=== PATIENT | female | born 1950 | race Caucasian/White ===

== ENCOUNTER 2017-02-20 08:29 | Observation (INO) ==
[2017-02-20] MEDS ORDERED: SODIUM CHLORIDE 0.9% 1,000 ML IV STA (08:48)
[2017-02-20 09:33] LABS: Basophils % 0.3 % (0.0-0.8); Eosinophils # 0.3 10*3/uL (0.0-0.87); Eosinophils % 3.2 % (0.00-10.9); Hematocrit 38.1 VOL% (35.7-47.0); Hemoglobin 12.1 GM/DL (12.0-16.0); Immature Granulocytes % 0.6 %; Immature Granulocytes Absolute 0.06 #; Lymphocytes # 1.8 10*3/uL (1.4-4.0); Lymphocytes % 19.4 % (21.3-54.2); Mean Corpuscular HGB Conc 31.8 GM/DL (32-36); Mean Corpuscular Hemoglobin 32 PG (27-34); Mean Corpuscular Volume 101.3 FL (87-102); Mean Platelet Volume 9.6 FL (9.6-12.0); Monocytes # 0.7 10*3/uL (0.11-0.8); Monocytes % 7.5 % (1.7-12.7); Neutrophils # 6.4 10*3/uL (1.4-7.4); Platelet Count 187 T/CUMM (130-400); Red Blood Count 3.76 MC/CUMM (3.8-5.5); Red Cell Distribution Width 14.6 % (9.3-17.3); White Blood Count 9.3 T/CUMM (4-12)
[2017-02-20 09:36] LABS: Amorphous Crystals,Urine Occasional /HPF (Few); Apearance,Urine CLEAR (Clear); Bacteria,Urine Many /HPF (Few); Bilirubin,Urine Negative (Negative); Blood, Urine Small mg/dL (Negative); Glucose,Urine (UA) 150 mg/dL (Negative); Ketones,Urine Negative (Negative); Mucus,Urine Occasional /LPF (Occasional); Nitrite,Urine Positive (Negative); Protein,Urine Negative; RBC,Urine <1 /HPF (0-4); Squamous Epithelial Cell,Urine Occasional /HPF (0-10); Urine Color Yellow (Yellow); Urine Specific Gravity 1.018 (1.001-1.035); Urine Urobilinogen < 2.0 EU/DL (0.2-1.0); WBC,Urine 15 /HPF (0-6)
[2017-02-20] MEDS ORDERED: ONDANSETRON 4 MG/2 ML VIAL ONE ×2 (09:36→11:29)
[2017-02-20] MEDS ORDERED: MORPHINE 2 MG/1 ML SYRINGE ONE (09:37)
[2017-02-20 09:43] LABS: INR 1.1; PT Patient Result 11.2 SECS; Partial Thromboplastin Time 32.9 SECS (0-40)
[2017-02-20 09:56] LABS: Barbiturates Screen,Urine Negative (Negative); Benzodiazepines Screen,Urine Negative (Negative); Cannabinoid Screen,Urine Negative (Negative); Opiate Screen,Urine Negative (Negative); Phencyclidine Screen,Urine Negative (Negative)
[2017-02-20] MEDS ORDERED: cefTRIAXone 1,000 MG in SODIUM CHLORIDE 0.9% 100 ML IV STA (10:10)
[2017-02-20 10:13] LABS: Alanine Aminotransferase 11 U/L (13-56); Alkaline Phosphatase 130 U/L (45-117); Aspartate Amino Transferase 18 U/L (0-37); Bilirubin,Total < 0.39 MG/DL (0.2-1.0); Blood Urea Nitrogen 13 MG/DL (7-18); CKMB % 3.7 %; Calcium 8.3 MG/DL (8.5-10.1); Glucose 89 MG/DL (74-106); Potassium 3.4 MMOL/L (3.5-5.1); Sodium 143 MMOL/L (136-145); Total Protein 6.8 G/DL (6.4-8.3); Troponin I Only < 0.015 NG/ML (0.00-0.045)
[2017-02-20] MEDS ORDERED: HYDROmorphone 2 MG/1 ML VIAL IV STA (10:55)
[2017-02-20] MEDS ORDERED: ONDANSETRON 4 MG/2 ML VIAL IV STA (10:55)
[2017-02-20] MEDS ORDERED: HYDROmorphone 2 MG/1 ML VIAL ONE (11:29)
[2017-02-20] MEDS ORDERED: cefTRIAXone 1,000 MG VIAL ONE (11:29)
[2017-02-20] MEDS ORDERED: ACETAMINOPHEN 325 MG TABLET PO PRN (13:51)
[2017-02-20] MEDS ORDERED: POTASSIUM CHLORIDE INJ 40 MEQ in SODIUM CHLORIDE 0.45% 1,000 ML IV SCH (17:00)
[2017-02-20] MEDS: LEVOFLOXACIN 250 MG TABLET PO SCH (17:23)
[2017-02-20] MEDS: POTASSIUM CHLORIDE 20 MEQ TABLET PO SCH (17:24)
[2017-02-20] MEDS ORDERED: TERBINAFINE 250 MG TABLET PO PRN (17:59)
[2017-02-20] MEDS: APIXABAN 2.5 MG TABLET PO SCH (21:23)
[2017-02-21 06:45] LABS: Basophils % 0.3 % (0.0-0.8); Eosinophils # 0.4 10*3/uL (0.0-0.87); Eosinophils % 3.7 % (0.00-10.9); Hematocrit 35.2 VOL% (35.7-47.0); Immature Granulocytes % 0.8 %; Immature Granulocytes Absolute 0.08 #; Lymphocytes # 1.4 10*3/uL (1.4-4.0); Lymphocytes % 14.5 % (21.3-54.2); Mean Corpuscular HGB Conc 31.3 GM/DL (32-36); Mean Corpuscular Hemoglobin 32 PG (27-34); Mean Corpuscular Volume 101.4 FL (87-102); Mean Platelet Volume 9.9 FL (9.6-12.0); Monocytes # 0.6 10*3/uL (0.11-0.8); Monocytes % 6.5 % (1.7-12.7); Neutrophils # 7.1 10*3/uL (1.4-7.4); Neutrophils % 74.2 % (38.7-73.9); Platelet Count 195 T/CUMM (130-400); Red Blood Count 3.47 MC/CUMM (3.8-5.5); Red Cell Distribution Width 14.5 % (9.3-17.3); White Blood Count 9.6 T/CUMM (4-12)
[2017-02-21 07:17] LABS: Calcium 8.2 MG/DL (8.5-10.1)
[2017-02-21 07:18] LABS: Potassium 4.3 MMOL/L (3.5-5.1)
[2017-02-21 07:53] VITALS: BP 111/63
[2017-02-21] MEDS: LEVOFLOXACIN 250 MG TABLET PO SCH (08:14)
[2017-02-21] MEDS: POTASSIUM CHLORIDE 20 MEQ TABLET PO SCH (08:14)
[2017-02-21] MEDS: APIXABAN 2.5 MG TABLET PO SCH (08:15)
[2017-02-21] MEDS ORDERED: FLUoxetine 20 MG CAPSULE PO SCH (09:00)
[2017-02-21] MEDS ORDERED: DONEPEZIL 10 MG TABLET PO SCH (09:00)
[2017-02-21] MEDS ORDERED: CHOLECALCIFEROL 400 UNIT TABLET PO SCH (09:00)
[2017-02-21] MEDS ORDERED: NON-FORMULARY MEDICATION (Canagliflozin [Invokana] 300 MG) PO SCH (09:00)
[2017-02-21] MEDS ORDERED: ESCITALOPRAM 10 MG TABLET PO SCH (09:00)
== END 2017-02-21 10:28 | disposition home health service (06) ==
LOC: EDUNIT# → EDBD → N.EDINP 08:29 → N.ED 08:29 → N.5E 16:26
PROVIDERS: ADMIT Hospitalist; ATTEND Hospitalist

== ENCOUNTER 2018-03-15 10:52 | Inpatient (IN) ==
[2018-03-15 11:46] LABS: Basophils # 0.1 10*3/uL (0.0-0.2); Basophils % 0.4 % (0.0-0.8); Eosinophils # 0.1 10*3/uL (0.0-0.87); Eosinophils % 0.9 % (0.00-10.9); Hematocrit 42.1 VOL% (35.7-47.0); Hemoglobin 13.2 GM/DL (12.0-16.0); Immature Granulocytes Absolute 0.31 #; Lymphocytes # 1.8 10*3/uL (1.4-4.0); Lymphocytes % 11.8 % (21.3-54.2); Mean Corpuscular HGB Conc 31.4 GM/DL (32-36); Mean Corpuscular Hemoglobin 29 PG (27-34); Mean Corpuscular Volume 93.6 FL (87-102); Mean Platelet Volume 10.1 FL (9.6-12.0); Monocytes # 0.7 10*3/uL (0.11-0.8); Monocytes % 4.8 % (1.7-12.7); Neutrophils # 12.1 10*3/uL (1.4-7.4); Neutrophils % 80.1 % (38.7-73.9); Platelet Count 266 T/CUMM (130-400); Red Cell Distribution Width 13.9 % (9.3-17.3); White Blood Count 15.1 T/CUMM (4-12)
[2018-03-15 12:05] LABS: Hypochromasia 1+
[2018-03-15 12:06] LABS: Microcytosis 1+
[2018-03-15 12:18] LABS: Calcium 9.3 MG/DL (8.5-10.1); Potassium 4.2 MMOL/L (3.5-5.1)
[2018-03-15] MEDS ORDERED: ALBUTEROL 2.5 MG/3 ML NEB RESP TX STA (13:35)
[2018-03-15] MEDS ORDERED: methylPREDNISolone SOD SUC 40 MG/1 ML VIAL IV STA (14:03)
[2018-03-15] MEDS ORDERED: FUROSEMIDE 40 MG/4 ML VIAL IV STA (14:03)
[2018-03-15] MEDS ORDERED: cefTRIAXone 1,000 MG in SODIUM CHLORIDE 0.9% 100 ML IV STA (14:40)
[2018-03-15] MEDS ORDERED: ONDANSETRON 4 MG/2 ML VIAL IV PRN (15:19)
[2018-03-15] MEDS ORDERED: guaiFENesin/DM ER 600-30 MG TABLET PO PRN (15:19)
[2018-03-15] MEDS ORDERED: ACETAMINOPHEN 325 MG TABLET PO PRN (15:19)
[2018-03-15] MEDS ORDERED: ALBUTEROL/IPRATROPIUM 3 ML NEB RESP TX PRN (15:19)
[2018-03-15] MEDS ORDERED: LACTULOSE 20 GM/30 ML UDCUP PO PRN (15:19)
[2018-03-15] MEDS ORDERED: DOCUSATE SODIUM 100 MG CAPSULE PO PRN (15:19)
[2018-03-15] MEDS: GABAPENTIN 300 MG CAPSULE PO SCH ×2 (17:29→20:29)
[2018-03-15] MEDS: SODIUM CHLORIDE 0.9% 1,000 ML IV SCH (18:22)
[2018-03-15] MEDS: AZITHROMYCIN INJ 500 MG in SODIUM CHLORIDE 0.9% 250 ML IV SCH (18:22)
[2018-03-15] MEDS: BACLOFEN 10 MG TABLET PO SCH (20:29)
[2018-03-15] MEDS: AMITRIPTYLINE 50 MG TABLET PO SCH (20:29)
[2018-03-15] MEDS: DONEPEZIL 10 MG TABLET PO SCH (20:29)
[2018-03-15] MEDS: APIXABAN 2.5 MG TABLET PO SCH (20:29)
[2018-03-15] MEDS ORDERED: GLUCAGON 1 MG VIAL IM PRN (21:46)
[2018-03-15] MEDS ORDERED: DEXTROSE 50% 25 GM/50 ML VIAL IV PRN (21:46)
[2018-03-16] MEDS: cefTRIAXone 1,000 MG in SYRINGE 1 EACH IV SCH ×2 (03:34→21:51)
[2018-03-16 05:18] LABS: Basophils % 0.2 % (0.0-0.8); Hematocrit 35.2 VOL% (35.7-47.0); Immature Granulocytes % 2.1 %; Immature Granulocytes Absolute 0.22 #; Lymphocytes % 8.9 % (21.3-54.2); Mean Corpuscular HGB Conc 31.3 GM/DL (32-36); Mean Corpuscular Hemoglobin 29 PG (27-34); Mean Corpuscular Volume 93.1 FL (87-102); Mean Platelet Volume 9.8 FL (9.6-12.0); Monocytes # 0.4 10*3/uL (0.11-0.8); Monocytes % 3.4 % (1.7-12.7); Neutrophils # 9.2 10*3/uL (1.4-7.4); Neutrophils % 85.4 % (38.7-73.9); Platelet Count 265 T/CUMM (130-400); Red Blood Count 3.78 MC/CUMM (3.8-5.5); Red Cell Distribution Width 13.8 % (9.3-17.3); White Blood Count 10.7 T/CUMM (4-12)
[2018-03-16 05:45] LABS: Calcium 8.4 MG/DL (8.5-10.1); Risk Ratio 2.35; VLDL CHOLESTEROL 8.8 MG/DL
[2018-03-16] MEDS: LEVOTHYROXINE 25 MCG TABLET PO SCH (06:17)
[2018-03-16] MEDS: INSULIN REGULAR 100 UNIT/ML SUBCUT SCH ×4 (08:22→21:36)
[2018-03-16] MEDS: SODIUM CHLORIDE 0.9% 1,000 ML IV SCH ×2 (08:23→21:17)
[2018-03-16] MEDS: BACLOFEN 10 MG TABLET PO SCH ×2 (09:32→21:15)
[2018-03-16] MEDS: APIXABAN 2.5 MG TABLET PO SCH ×2 (09:32→21:15)
[2018-03-16] MEDS: GABAPENTIN 300 MG CAPSULE PO SCH ×3 (09:32→21:15)
[2018-03-16] MEDS: PANTOPRAZOLE 40 MG TABLET PO SCH (09:32)
[2018-03-16] MEDS: FLUoxetine 20 MG CAPSULE PO SCH (09:32)
[2018-03-16] MEDS ORDERED: GLYCERIN ADULT SUPP RECTAL PRN (14:43)
[2018-03-16] MEDS ORDERED: cefTRIAXone 1,000 MG in SYRINGE 1 EACH IV SCH (16:00)
[2018-03-16] MEDS: DONEPEZIL 10 MG TABLET PO SCH (21:15)
[2018-03-16] MEDS: AMITRIPTYLINE 50 MG TABLET PO SCH (21:15)
[2018-03-16] MEDS: AZITHROMYCIN INJ 500 MG in SODIUM CHLORIDE 0.9% 250 ML IV SCH (21:18)
[2018-03-17 04:34] LABS: Basophils % 0.3 % (0.0-0.8); Eosinophils # 0.2 10*3/uL (0.0-0.87); Eosinophils % 1.2 % (0.00-10.9); Hematocrit 34.9 VOL% (35.7-47.0); Hemoglobin 10.8 GM/DL (12.0-16.0); Immature Granulocytes % 2.2 %; Immature Granulocytes Absolute 0.28 #; Lymphocytes # 2.4 10*3/uL (1.4-4.0); Lymphocytes % 18.9 % (21.3-54.2); Mean Corpuscular HGB Conc 30.9 GM/DL (32-36); Mean Corpuscular Hemoglobin 29 PG (27-34); Mean Corpuscular Volume 94.8 FL (87-102); Mean Platelet Volume 9.6 FL (9.6-12.0); Monocytes # 0.7 10*3/uL (0.11-0.8); Monocytes % 5.5 % (1.7-12.7); Neutrophils # 9.3 10*3/uL (1.4-7.4); Neutrophils % 71.9 % (38.7-73.9); Platelet Count 263 T/CUMM (130-400); Red Blood Count 3.68 MC/CUMM (3.8-5.5); White Blood Count 12.9 T/CUMM (4-12)
[2018-03-17 05:03] LABS: Calcium 8.2 MG/DL (8.5-10.1); Osmolality,Calculated 283.3 MOS/KG (273-304); Potassium 4.1 MMOL/L (3.5-5.1)
[2018-03-17] MEDS: LEVOTHYROXINE 25 MCG TABLET PO SCH (06:14)
[2018-03-17] MEDS: INSULIN REGULAR 100 UNIT/ML SUBCUT SCH ×2 (08:13→12:38)
[2018-03-17] MEDS: BACLOFEN 10 MG TABLET PO SCH (10:25)
[2018-03-17] MEDS: PANTOPRAZOLE 40 MG TABLET PO SCH (10:25)
[2018-03-17] MEDS: APIXABAN 2.5 MG TABLET PO SCH (10:25)
[2018-03-17] MEDS: GABAPENTIN 300 MG CAPSULE PO SCH (10:25)
[2018-03-17] MEDS: FLUoxetine 20 MG CAPSULE PO SCH (10:25)
[2018-03-17] MEDS: cefTRIAXone 1,000 MG in SYRINGE 1 EACH IV SCH (10:26)
[2018-03-17 11:48] VITALS: BP 103/55
== END 2018-03-17 13:09 | disposition home or self-care (01) | DRG 913 ==
LOC: N.ED 10:52 → N.EDINP 15:19 → N.2E 16:33
PROVIDERS: ADMIT Hospitalist; ATTEND Hospitalist

== ENCOUNTER 2018-11-11 11:39 | Inpatient (IN) ==
[2018-11-11] MEDS ORDERED: NALOXONE 0.4 MG/ML VIAL IV STA (12:07)
[2018-11-11] MEDS ORDERED: SODIUM CHLORIDE 0.9% 1,000 ML IV STA (12:07)
[2018-11-11] MEDS ORDERED: methylPREDNISolone SOD SUC 125 MG/2 ML VIAL IV STA (12:07)
[2018-11-11 12:15] LABS: Basophils % 0.3 % (0.0-0.8); Eosinophils # 0.1 10*3/uL (0.0-0.87); Eosinophils % 0.4 % (0.00-10.9); Hemoglobin 11.7 GM/DL (12.0-16.0); Immature Granulocytes % 0.8 %; Immature Granulocytes Absolute 0.12 #; Lymphocytes # 2.1 10*3/uL (1.4-4.0); Lymphocytes % 14.3 % (21.3-54.2); Mean Corpuscular HGB Conc 31.6 GM/DL (32-36); Mean Corpuscular Volume 94.4 FL (87-102); Monocytes % 5.9 % (1.7-12.7); Neutrophils % 78.3 % (38.7-73.9); Platelet Count 213 T/CUMM (130-400); Red Blood Count 3.92 MC/CUMM (3.8-5.5); Red Cell Distribution Width 15.8 % (9.3-17.3)
[2018-11-11 12:23] LABS: PT Patient Result 10.8 SECS (9.6-12.2); Partial Thromboplastin Time 31.4 SECS (20.8-36.0)
[2018-11-11 12:40] LABS: Alanine Aminotransferase 15 U/L (13-56); Albumin 2.7 G/DL (3.4-5.0); Alkaline Phosphatase 163 U/L (45-117); Aspartate Amino Transferase 18 U/L (0-37); Blood Urea Nitrogen 13 MG/DL (7-18); Calcium 8.6 MG/DL (8.5-10.1); Free T4 (Free Thyroxine) 1.23 NG/DL (0.76-1.46); Glucose 102 MG/DL (74-106); Osmolality,Calculated 276.5 MOS/KG (273-304); Troponin I < 0.015 NG/ML (0.00-0.045)
[2018-11-11] MEDS ORDERED: cefTRIAXone 1,000 MG in SODIUM CHLORIDE 0.9% 100 ML IV STA (12:47)
[2018-11-11] MEDS ORDERED: ALBUTEROL/IPRATROPIUM 3 ML NEB RESP TX STA (12:47)
[2018-11-11] MEDS ORDERED: AZITHROMYCIN INJ 500 MG in SODIUM CHLORIDE 0.9% 250 ML IV STA (12:47)
[2018-11-11 13:25] LABS: Amorphous Crystals,Urine Occasional /HPF (Few); Apearance,Urine Slightly Hazy (Clear); Bacteria,Urine Occasional /HPF (Few); Bilirubin,Urine Negative (Negative); Blood, Urine Small mg/dL (Negative); Glucose,Urine (UA) Negative (Negative); Hyaline Casts,Urine 1 /LPF (0-3); Ketones,Urine Negative (Negative); Mucus,Urine Occasional /LPF (Occasional); Nitrite,Urine Positive (Negative); Protein,Urine Negative; RBC,Urine 2 /HPF (0-4); Squamous Epithelial Cell,Urine Occasional /HPF (0-10); Urine Color Yellow (Yellow); Urine Specific Gravity 1.011 (1.001-1.035); Urine Urobilinogen < 2.0 EU/DL (0.2-1.0); WBC,Urine 33 /HPF (0-6)
[2018-11-11 13:34] LABS: Barbiturates Screen,Urine Negative (Negative); Benzodiazepines Screen,Urine Negative (Negative); Cannabinoid Screen,Urine Negative (Negative); Opiate Screen,Urine Negative (Negative); Phencyclidine Screen,Urine Negative (Negative)
[2018-11-11] MEDS ORDERED: ONDANSETRON 4 MG/2 ML VIAL IV PRN (14:40)
[2018-11-11] MEDS ORDERED: ACETAMINOPHEN 325 MG TABLET PO PRN (14:40)
[2018-11-11] MEDS ORDERED: LACTULOSE 20 GM/30 ML UDCUP PO PRN (14:40)
[2018-11-11] MEDS ORDERED: ALBUTEROL 2.5 MG/3 ML NEB RESP TX PRN (14:43)
[2018-11-11] MEDS ORDERED: BENZONATATE 100 MG CAPSULE PO PRN (14:43)
[2018-11-11] MEDS ORDERED: SODIUM CHLORIDE 0.9% 1,000 ML IV ONE (14:51)
[2018-11-11] MEDS: GABAPENTIN 600 MG TABLET PO SCH ×2 (18:13→20:54)
[2018-11-11] MEDS: PIPERACILLIN/TAZOBACTAM 3,375 MG in SODIUM CHLORIDE 0.9% 100 ML IV SCH (18:14)
[2018-11-11] MEDS: SODIUM CHLORIDE 0.9% 1,000 ML IV SCH (18:14)
[2018-11-11] MEDS: ALBUTEROL/IPRATROPIUM 3 ML NEB RESP TX SCH (19:23)
[2018-11-11] MEDS: APIXABAN 2.5 MG TABLET PO SCH (20:54)
[2018-11-11] MEDS: DONEPEZIL 10 MG TABLET PO SCH (20:54)
[2018-11-11] MEDS: BACLOFEN 10 MG TABLET PO SCH (20:54)
[2018-11-11] MEDS: LEVOFLOXACIN INJ 750 MG in PREMIX 1 EACH IV SCH (22:01)
[2018-11-12] MEDS: ALBUTEROL/IPRATROPIUM 3 ML NEB RESP TX SCH ×4 (00:46→19:47)
[2018-11-12] MEDS: PIPERACILLIN/TAZOBACTAM 3,375 MG in SODIUM CHLORIDE 0.9% 100 ML IV SCH ×3 (02:28→17:06)
[2018-11-12 05:54] LABS: Basophils % 0.1 % (0.0-0.8); Hematocrit 33.3 VOL% (35.7-47.0); Hemoglobin 10.7 GM/DL (12.0-16.0); Immature Granulocytes % 0.8 %; Immature Granulocytes Absolute 0.12 #; Lymphocytes # 0.9 10*3/uL (1.4-4.0); Lymphocytes % 6.2 % (21.3-54.2); Mean Corpuscular HGB Conc 32.1 GM/DL (32-36); Mean Corpuscular Volume 93.3 FL (87-102); Mean Platelet Volume 10.5 FL (9.6-12.0); Monocytes % 3.2 % (1.7-12.7); Neutrophils % 89.7 % (38.7-73.9); Platelet Count 218 T/CUMM (130-400); Red Blood Count 3.57 MC/CUMM (3.8-5.5); Red Cell Distribution Width 15.8 % (9.3-17.3); White Blood Count 14.5 T/CUMM (4-12)
[2018-11-12] MEDS: LEVOTHYROXINE 25 MCG TABLET PO SCH (06:30)
[2018-11-12 06:32] LABS: Calcium 8.8 MG/DL (8.5-10.1); Risk Ratio 2.4; VLDL CHOLESTEROL 9.8 MG/DL
[2018-11-12] MEDS ORDERED: CYANOCOBALAMIN 1000 MCG/1 ML VIAL IM SCH (09:00)
[2018-11-12] MEDS: VANCOMYCIN INJ 1,000 MG in SODIUM CHLORIDE 0.9% 250 ML IV SCH (09:11)
[2018-11-12] MEDS: FLUoxetine 20 MG CAPSULE PO SCH (09:13)
[2018-11-12] MEDS: GABAPENTIN 600 MG TABLET PO SCH ×3 (09:14→22:11)
[2018-11-12] MEDS: MULTIVITAMIN (BEROCCA) TABLET PO SCH (09:14)
[2018-11-12] MEDS: APIXABAN 2.5 MG TABLET PO SCH ×2 (09:14→22:11)
[2018-11-12] MEDS: SODIUM CHLORIDE 0.9% 1,000 ML IV SCH ×2 (09:14→17:07)
[2018-11-12] MEDS: PANTOPRAZOLE 40 MG TABLET PO SCH (09:14)
[2018-11-12] MEDS: BACLOFEN 10 MG TABLET PO SCH ×2 (09:14→22:10)
[2018-11-12] MEDS: POTASSIUM CHLORIDE 20 MEQ TABLET PO SCH (09:14)
[2018-11-12] MEDS: DONEPEZIL 10 MG TABLET PO SCH (22:11)
[2018-11-12] MEDS: LEVOFLOXACIN INJ 750 MG in PREMIX 1 EACH IV SCH (22:16)
[2018-11-12] MEDS ORDERED: ZALEPLON 5 MG CAPSULE PO ONE (23:49)
[2018-11-13] MEDS: ALBUTEROL/IPRATROPIUM 3 ML NEB RESP TX SCH ×3 (00:51→20:16)
[2018-11-13] MEDS: PIPERACILLIN/TAZOBACTAM 3,375 MG in SODIUM CHLORIDE 0.9% 100 ML IV SCH ×3 (02:34→18:08)
[2018-11-13] MEDS: SODIUM CHLORIDE 0.9% 1,000 ML IV SCH ×2 (05:47→14:00)
[2018-11-13] MEDS ORDERED: FUROSEMIDE 40 MG/4 ML VIAL IV ONE (08:24)
[2018-11-13 09:29] LABS: ABG Base Excess 0.8 MMOL/L (-2.5-2.5); ABG Oxygen Saturation 91.4 % (95-100); ABG PCO2 38.3 MM HG (35-48); ABG PH 7.423 (7.35-7.45); ABG PO2 60.7 MM HG (80-95); ABG TCO2 22.4 MMOL/L (23-27)
[2018-11-13] MEDS: PANTOPRAZOLE 40 MG TABLET PO SCH (09:43)
[2018-11-13] MEDS: BACLOFEN 10 MG TABLET PO SCH ×2 (09:43→21:51)
[2018-11-13] MEDS: POTASSIUM CHLORIDE 20 MEQ TABLET PO SCH (09:43)
[2018-11-13] MEDS: FLUoxetine 20 MG CAPSULE PO SCH (09:43)
[2018-11-13] MEDS: GABAPENTIN 600 MG TABLET PO SCH ×3 (09:43→21:51)
[2018-11-13] MEDS: LEVOTHYROXINE 25 MCG TABLET PO SCH (09:43)
[2018-11-13] MEDS: APIXABAN 2.5 MG TABLET PO SCH ×2 (09:43→21:51)
[2018-11-13] MEDS: VANCOMYCIN INJ 1,000 MG in SODIUM CHLORIDE 0.9% 250 ML IV SCH (09:44)
[2018-11-13] MEDS: LEVALBUTEROL 0.31 MG/3 ML NEB RESP TX SCH ×2 (12:13→19:50)
[2018-11-13] MEDS ORDERED: ALPRAZolam 0.25 MG TABLET PO ONE (13:09)
[2018-11-13] MEDS ORDERED: POTASSIUM CHLORIDE 20 MEQ TABLET PO PRN (13:41)
[2018-11-13] MEDS: MULTIVITAMIN (BEROCCA) TABLET PO SCH (13:47)
[2018-11-13] MEDS ORDERED: DIGOXIN 0.5 MG/2 ML AMP IV ONE (14:05)
[2018-11-13 14:17] LABS: Troponin I < 0.015 NG/ML (0.00-0.045)
[2018-11-13] MEDS ORDERED: TUBERCULIN SKIN TEST 0.1 ML SYRINGE INTRADERM ONE (14:52)
[2018-11-13 15:31] LABS: ABG Base Excess 3.3 MMOL/L (-2.5-2.5); ABG HCO3 27.1 MMOL/L (20-26); ABG Oxygen Saturation 88.9 % (95-100); ABG PCO2 36.2 MM HG (35-48); ABG PH 7.476 (7.35-7.45); ABG PO2 53.1 MM HG (80-95); ABG TCO2 23.6 MMOL/L (23-27)
[2018-11-13] MEDS ORDERED: VECURONIUM 10 MG VIAL IV ONE ×2 (16:26→16:30)
[2018-11-13] MEDS ORDERED: ETOMIDATE 20 MG/10 ML VIAL IV ONE ×2 (16:26→18:23)
[2018-11-13] MEDS ORDERED: PROPOFOL 1,000 MG/100 ML BOTTLE IV ONE (16:33)
[2018-11-13] MEDS ORDERED: ALBUTEROL 2.5 MG/3 ML NEB RESP TX PRN (16:37)
[2018-11-13] MEDS ORDERED: MIDAZOLAM 100 MG in SODIUM CHLORIDE 0.9% 80 ML IV PRN (16:37)
[2018-11-13] MEDS ORDERED: LORazepam INJ 40 MG in DEXTROSE 5% 30 ML IV PRN (16:37)
[2018-11-13 16:44] LABS: Troponin I < 0.015 NG/ML (0.00-0.045)
[2018-11-13 17:56] LABS: ABG HCO3 26.2 MMOL/L (20-26); ABG PCO2 37.9 MM HG (35-48); ABG PH 7.444 (7.35-7.45); Pt O2 Delivery Device Ventilator
[2018-11-13] MEDS: SODIUM CHLORIDE 0.45% 1,000 ML IV SCH (18:02)
[2018-11-13] MEDS: PROPOFOL 1,000 MG/100 ML BOTTLE IV SCH ×2 (18:08→23:42)
[2018-11-13] MEDS: NOREPINEPHRINE 8 MG in SODIUM CHLORIDE 0.9% 242 ML IV SCH ×2 (18:08→19:19)
[2018-11-13] MEDS: FAMOTIDINE 20 MG/2 ML VIAL IV SCH (21:51)
[2018-11-13] MEDS: DONEPEZIL 10 MG TABLET PO SCH (21:51)
[2018-11-13] MEDS: VANCOMYCIN INJ 1,250 MG in SODIUM CHLORIDE 0.9% 250 ML IV SCH (21:52)
[2018-11-13] MEDS: LEVOFLOXACIN INJ 750 MG in PREMIX 1 EACH IV SCH (23:32)
[2018-11-14] MEDS: PIPERACILLIN/TAZOBACTAM 3,375 MG in SODIUM CHLORIDE 0.9% 100 ML IV SCH ×3 (01:25→16:20)
[2018-11-14] MEDS: LEVALBUTEROL 0.31 MG/3 ML NEB RESP TX SCH ×4 (01:42→19:35)
[2018-11-14 04:01] LABS: ABG Base Excess 1.5 MMOL/L (-2.5-2.5); ABG HCO3 25.8 MMOL/L (20-26); ABG Oxygen Saturation 99.5 % (95-100); ABG PCO2 39.3 MM HG (35-48); ABG PH 7.426 (7.35-7.45); ABG TCO2 22.6 MMOL/L (23-27); Allen Test Positive; Pt O2 Delivery Device Ventilator
[2018-11-14] MEDS: ALBUTEROL/IPRATROPIUM 3 ML NEB RESP TX SCH ×3 (04:49→13:56)
[2018-11-14 05:51] LABS: Basophils # 0.1 10*3/uL (0.0-0.2); Basophils % 0.4 % (0.0-0.8); Eosinophils # 0.1 10*3/uL (0.0-0.87); Eosinophils % 0.5 % (0.00-10.9); Hematocrit 36.6 VOL% (35.7-47.0); Hemoglobin 11.8 GM/DL (12.0-16.0); Immature Granulocytes Absolute 0.17 #; Lymphocytes # 1.8 10*3/uL (1.4-4.0); Lymphocytes % 10.8 % (21.3-54.2); Mean Corpuscular HGB Conc 32.2 GM/DL (32-36); Mean Corpuscular Volume 92.4 FL (87-102); Mean Platelet Volume 9.9 FL (9.6-12.0); Monocytes % 4.8 % (1.7-12.7); Neutrophils % 82.5 % (38.7-73.9); Platelet Count 233 T/CUMM (130-400); Red Blood Count 3.96 MC/CUMM (3.8-5.5); Red Cell Distribution Width 15.7 % (9.3-17.3)
[2018-11-14 06:13] LABS: Calcium 8.9 MG/DL (8.5-10.1); Osmolality,Calculated 280.4 MOS/KG (273-304)
[2018-11-14 06:15] LABS: Albumin 2.1 G/DL (3.4-5.0); Bilirubin,Total 1.5 MG/DL (0.2-1.0); Calcium 9.1 MG/DL (8.5-10.1); Total Protein 6.9 G/DL (6.4-8.3)
[2018-11-14] MEDS: PROPOFOL 1,000 MG/100 ML BOTTLE IV SCH ×4 (06:25→21:29)
[2018-11-14] MEDS: LEVOTHYROXINE 25 MCG TABLET PO SCH (06:25)
[2018-11-14] MEDS: MULTIVITAMIN (BEROCCA) TABLET PO SCH (08:50)
[2018-11-14] MEDS: BACLOFEN 10 MG TABLET PO SCH ×2 (08:50→20:24)
[2018-11-14] MEDS: FLUoxetine 20 MG CAPSULE PO SCH (08:50)
[2018-11-14] MEDS: APIXABAN 2.5 MG TABLET PO SCH ×2 (08:51→20:25)
[2018-11-14] MEDS: GABAPENTIN 600 MG TABLET PO SCH ×3 (08:51→20:25)
[2018-11-14] MEDS: POTASSIUM CHLORIDE 20 MEQ TABLET PO SCH (08:53)
[2018-11-14] MEDS: FAMOTIDINE 20 MG/2 ML VIAL IV SCH ×2 (08:53→20:24)
[2018-11-14] MEDS: VANCOMYCIN INJ 1,250 MG in SODIUM CHLORIDE 0.9% 250 ML IV SCH ×2 (08:58→20:28)
[2018-11-14] MEDS ORDERED: MAGNESIUM SULF RIDER 4 GM in PREMIX 1 EACH IV PRN (09:25)
[2018-11-14] MEDS ORDERED: SODIUM CHLORIDE 0.9% 500 ML IV ONE (10:41)
[2018-11-14] MEDS: POTASSIUM CHLORIDE RIDER 10 MEQ in PREMIX 1 EACH IV PRN ×5 (11:31→16:30)
[2018-11-14] MEDS: SODIUM CHLORIDE 0.45% 1,000 ML IV SCH (13:42)
[2018-11-14] MEDS: NOREPINEPHRINE 8 MG in SODIUM CHLORIDE 0.9% 242 ML IV SCH (17:07)
[2018-11-14] MEDS: MAGNESIUM SULF RIDER 2 GM in PREMIX 1 EACH IV PRN (17:10)
[2018-11-14] MEDS: DONEPEZIL 10 MG TABLET PO SCH (20:25)
[2018-11-14] MEDS ORDERED: METOPROLOL TARTRATE 5 MG/5 ML VIAL IV ONE (21:22)
[2018-11-14] MEDS: LEVOFLOXACIN INJ 750 MG in PREMIX 1 EACH IV SCH (23:01)
[2018-11-15] MEDS: NOREPINEPHRINE 8 MG in SODIUM CHLORIDE 0.9% 242 ML IV SCH ×2 (00:32→17:28)
[2018-11-15] MEDS: PIPERACILLIN/TAZOBACTAM 3,375 MG in SODIUM CHLORIDE 0.9% 100 ML IV SCH ×3 (00:33→17:00)
[2018-11-15] MEDS: LEVALBUTEROL 0.31 MG/3 ML NEB RESP TX SCH ×4 (01:00→19:11)
[2018-11-15] MEDS: PROPOFOL 1,000 MG/100 ML BOTTLE IV SCH ×4 (05:00→18:01)
[2018-11-15 05:24] LABS: Osmolality,Calculated 275.5 MOS/KG (273-304)
[2018-11-15] MEDS: LEVOTHYROXINE 25 MCG TABLET PO SCH (05:44)
[2018-11-15 05:56] LABS: Basophils # 0.1 10*3/uL (0.0-0.2); Basophils % 0.3 % (0.0-0.8); Eosinophils # 0.2 10*3/uL (0.0-0.87); Eosinophils % 1.2 % (0.00-10.9); Hematocrit 35.3 VOL% (35.7-47.0); Hemoglobin 11.2 GM/DL (12.0-16.0); Immature Granulocytes % 0.8 %; Immature Granulocytes Absolute 0.14 #; Lymphocytes # 1.5 10*3/uL (1.4-4.0); Lymphocytes % 9.1 % (21.3-54.2); Mean Corpuscular HGB Conc 31.7 GM/DL (32-36); Mean Corpuscular Volume 93.9 FL (87-102); Mean Platelet Volume 10.9 FL (9.6-12.0); Monocytes % 4.8 % (1.7-12.7); Neutrophils % 83.8 % (38.7-73.9); Platelet Count 210 T/CUMM (130-400); Red Blood Count 3.76 MC/CUMM (3.8-5.5); Red Cell Distribution Width 15.8 % (9.3-17.3); White Blood Count 16.9 T/CUMM (4-12)
[2018-11-15 06:04] LABS: ABG Base Excess -2.2 MMOL/L (-2.5-2.5); ABG HCO3 22.6 MMOL/L (20-26); ABG Oxygen Saturation 98.2 % (95-100); ABG PCO2 39.5 MM HG (35-48); ABG TCO2 20.6 MMOL/L (23-27); Allen Test Positive; Pt O2 Delivery Device Ventilator
[2018-11-15] MEDS: POTASSIUM CHLORIDE RIDER 10 MEQ in PREMIX 1 EACH IV PRN ×3 (06:30→08:31)
[2018-11-15] MEDS: BACLOFEN 10 MG TABLET PO SCH ×2 (09:39→20:26)
[2018-11-15] MEDS: APIXABAN 2.5 MG TABLET PO SCH ×2 (09:39→20:26)
[2018-11-15] MEDS: POTASSIUM CHLORIDE 20 MEQ TABLET PO SCH (09:39)
[2018-11-15] MEDS: GABAPENTIN 600 MG TABLET PO SCH ×3 (09:39→20:26)
[2018-11-15] MEDS: MULTIVITAMIN (BEROCCA) TABLET PO SCH (09:39)
[2018-11-15] MEDS: FAMOTIDINE 20 MG/2 ML VIAL IV SCH ×2 (09:40→20:26)
[2018-11-15] MEDS: FLUoxetine 20 MG CAPSULE PO SCH (09:40)
[2018-11-15] MEDS: VANCOMYCIN INJ 1,250 MG in SODIUM CHLORIDE 0.9% 250 ML IV SCH (09:50)
[2018-11-15] MEDS: SODIUM CHLORIDE 0.45% 1,000 ML IV SCH ×2 (13:19→13:20)
[2018-11-15] MEDS ORDERED: GLUCAGON 1 MG VIAL IM PRN (13:59)
[2018-11-15] MEDS ORDERED: DEXTROSE 50% 25 GM/50 ML VIAL IV PRN (13:59)
[2018-11-15] MEDS: INSULIN REGULAR 100 UNIT/ML SUBCUT SCH (18:56)
[2018-11-15] MEDS: DONEPEZIL 10 MG TABLET PO SCH (20:26)
[2018-11-15] MEDS: LEVOFLOXACIN INJ 750 MG in PREMIX 1 EACH IV SCH (23:07)
[2018-11-16] MEDS: SODIUM CHLORIDE 0.45% 1,000 ML IV SCH ×5 (00:02→20:06)
[2018-11-16] MEDS: INSULIN REGULAR 100 UNIT/ML SUBCUT SCH ×4 (00:11→19:16)
[2018-11-16] MEDS: LEVALBUTEROL 0.31 MG/3 ML NEB RESP TX SCH ×4 (00:38→18:52)
[2018-11-16] MEDS: PIPERACILLIN/TAZOBACTAM 3,375 MG in SODIUM CHLORIDE 0.9% 100 ML IV SCH ×3 (01:22→17:44)
[2018-11-16] MEDS: PROPOFOL 1,000 MG/100 ML BOTTLE IV SCH ×2 (01:22→17:44)
[2018-11-16 04:22] LABS: ABG Base Excess 1.6 MMOL/L (-2.5-2.5); ABG PCO2 40.4 MM HG (35-48); ABG PH 7.427 (7.35-7.45); ABG PO2 74.8 MM HG (80-95); ABG TCO2 27.3 MMOL/L (23-27); Allen Test Positive; Pt O2 Delivery Device Ventilator
[2018-11-16 05:43] LABS: Basophils % 0.2 % (0.0-0.8); Eosinophils # 0.4 10*3/uL (0.0-0.87); Eosinophils % 2.9 % (0.00-10.9); Hematocrit 31.1 VOL% (35.7-47.0); Hemoglobin 10.1 GM/DL (12.0-16.0); Immature Granulocytes % 0.8 %; Lymphocytes # 1.4 10*3/uL (1.4-4.0); Lymphocytes % 10.7 % (21.3-54.2); Mean Corpuscular HGB Conc 32.5 GM/DL (32-36); Mean Corpuscular Volume 91.2 FL (87-102); Neutrophils % 79.4 % (38.7-73.9); Platelet Count 212 T/CUMM (130-400); Red Blood Count 3.41 MC/CUMM (3.8-5.5); Red Cell Distribution Width 15.5 % (9.3-17.3); White Blood Count 12.8 T/CUMM (4-12)
[2018-11-16 05:55] LABS: Osmolality,Calculated 279.4 MOS/KG (273-304)
[2018-11-16 06:01] LABS: Prealbumin < 3.0 MG/DL (20-40)
[2018-11-16] MEDS: LEVOTHYROXINE 25 MCG TABLET PO SCH (06:33)
[2018-11-16] MEDS: POTASSIUM CHLORIDE RIDER 10 MEQ in PREMIX 1 EACH IV PRN ×6 (06:47→19:07)
[2018-11-16] MEDS: FLUoxetine 20 MG CAPSULE PO SCH (09:32)
[2018-11-16] MEDS: MULTIVITAMIN (BEROCCA) TABLET PO SCH (09:33)
[2018-11-16] MEDS: POTASSIUM CHLORIDE 20 MEQ TABLET PO SCH (09:34)
[2018-11-16] MEDS: GABAPENTIN 600 MG TABLET PO SCH ×3 (09:34→20:17)
[2018-11-16] MEDS: FAMOTIDINE 20 MG/2 ML VIAL IV SCH ×2 (09:35→20:14)
[2018-11-16] MEDS: APIXABAN 2.5 MG TABLET PO SCH ×2 (09:35→20:17)
[2018-11-16] MEDS: BACLOFEN 10 MG TABLET PO SCH ×2 (09:35→20:17)
[2018-11-16] MEDS: FLUCONAZOLE INJ 100 MG in IV BAG 1 EACH IV SCH (09:39)
[2018-11-16] MEDS: NOREPINEPHRINE 8 MG in SODIUM CHLORIDE 0.9% 242 ML IV SCH (15:59)
[2018-11-16] MEDS: DONEPEZIL 10 MG TABLET PO SCH (20:17)
[2018-11-16] MEDS: LEVOFLOXACIN INJ 750 MG in PREMIX 1 EACH IV SCH (23:16)
[2018-11-17] MEDS: INSULIN REGULAR 100 UNIT/ML SUBCUT SCH ×4 (00:08→18:11)
[2018-11-17] MEDS: PIPERACILLIN/TAZOBACTAM 3,375 MG in SODIUM CHLORIDE 0.9% 100 ML IV SCH ×3 (00:52→18:13)
[2018-11-17] MEDS: LEVALBUTEROL 0.31 MG/3 ML NEB RESP TX SCH ×4 (01:18→19:49)
[2018-11-17 04:20] LABS: ABG Base Excess 4.6 MMOL/L (-2.5-2.5); ABG HCO3 28.6 MMOL/L (20-26); ABG Oxygen Saturation 97.7 % (95-100); ABG PCO2 42.4 MM HG (35-48); ABG PH 7.446 (7.35-7.45); ABG PO2 92.7 MM HG (80-95); ABG TCO2 26.4 MMOL/L (23-27)
[2018-11-17] MEDS: SODIUM CHLORIDE 0.45% 1,000 ML IV SCH ×3 (04:28→15:11)
[2018-11-17 05:52] LABS: Basophils % 0.2 % (0.0-0.8); Eosinophils # 0.3 10*3/uL (0.0-0.87); Eosinophils % 2.9 % (0.00-10.9); Hematocrit 29.3 VOL% (35.7-47.0); Hemoglobin 9.7 GM/DL (12.0-16.0); Lymphocytes # 1.3 10*3/uL (1.4-4.0); Lymphocytes % 12.4 % (21.3-54.2); Mean Corpuscular HGB Conc 33.1 GM/DL (32-36); Mean Platelet Volume 10.3 FL (9.6-12.0); Monocytes % 7.1 % (1.7-12.7); Neutrophils % 76.4 % (38.7-73.9); Platelet Count 210 T/CUMM (130-400); Red Blood Count 3.22 MC/CUMM (3.8-5.5); Red Cell Distribution Width 15.7 % (9.3-17.3); White Blood Count 10.3 T/CUMM (4-12)
[2018-11-17 06:08] LABS: Osmolality,Calculated 282.4 MOS/KG (273-304)
[2018-11-17] MEDS: LEVOTHYROXINE 25 MCG TABLET PO SCH (06:41)
[2018-11-17] MEDS: GABAPENTIN 600 MG TABLET PO SCH ×3 (08:08→21:05)
[2018-11-17] MEDS: MULTIVITAMIN (BEROCCA) TABLET PO SCH (08:08)
[2018-11-17] MEDS: FLUoxetine 20 MG CAPSULE PO SCH (08:08)
[2018-11-17] MEDS: FAMOTIDINE 20 MG/2 ML VIAL IV SCH ×2 (08:09→21:02)
[2018-11-17] MEDS: APIXABAN 2.5 MG TABLET PO SCH ×2 (08:09→21:05)
[2018-11-17] MEDS: POTASSIUM CHLORIDE RIDER 10 MEQ in PREMIX 1 EACH IV PRN ×2 (08:11→10:49)
[2018-11-17] MEDS: BACLOFEN 10 MG TABLET PO SCH ×2 (08:11→21:05)
[2018-11-17] MEDS: MAGNESIUM SULF RIDER 2 GM in PREMIX 1 EACH IV PRN (08:12)
[2018-11-17] MEDS ORDERED: POTASSIUM CHLORIDE 20 MEQ/15 ML UDCUP PER TUBE PRN (10:04)
[2018-11-17] MEDS: POTASSIUM CHLORIDE 20 MEQ/15 ML UDCUP PO SCH (10:37)
[2018-11-17] MEDS: FLUCONAZOLE INJ 100 MG in IV BAG 1 EACH IV SCH (10:41)
[2018-11-17] MEDS: POTASSIUM CHLORIDE 20 MEQ TABLET PO SCH (11:22)
[2018-11-17] MEDS: PROPOFOL 1,000 MG/100 ML BOTTLE IV SCH (16:31)
[2018-11-17] MEDS: NOREPINEPHRINE 8 MG in SODIUM CHLORIDE 0.9% 242 ML IV SCH (16:33)
[2018-11-17] MEDS: DONEPEZIL 10 MG TABLET PO SCH (21:05)
[2018-11-18] MEDS: LEVOFLOXACIN INJ 750 MG in PREMIX 1 EACH IV SCH (00:10)
[2018-11-18] MEDS: INSULIN REGULAR 100 UNIT/ML SUBCUT SCH ×4 (00:30→19:11)
[2018-11-18] MEDS: SODIUM CHLORIDE 0.45% 1,000 ML IV SCH ×4 (00:35→15:00)
[2018-11-18] MEDS: LEVALBUTEROL 0.31 MG/3 ML NEB RESP TX SCH ×4 (00:35→20:07)
[2018-11-18] MEDS: PIPERACILLIN/TAZOBACTAM 3,375 MG in SODIUM CHLORIDE 0.9% 100 ML IV SCH ×3 (01:39→17:40)
[2018-11-18 03:18] LABS: ABG Base Excess 7.8 MMOL/L (-2.5-2.5); ABG HCO3 31.6 MMOL/L (20-26); ABG Oxygen Saturation 97.5 % (95-100); ABG PCO2 51.1 MM HG (35-48); ABG PH 7.425 (7.35-7.45); ABG PO2 93.2 MM HG (80-95); ABG TCO2 30.5 MMOL/L (23-27); Allen Test Positive; Pt O2 Delivery Device Ventilator
[2018-11-18 04:10] LABS: Calcium 8.7 MG/DL (8.5-10.1); Osmolality,Calculated 280.4 MOS/KG (273-304)
[2018-11-18 04:12] LABS: Basophils % 0.3 % (0.0-0.8); Eosinophils # 0.3 10*3/uL (0.0-0.87); Eosinophils % 3.5 % (0.00-10.9); Hematocrit 28.2 VOL% (35.7-47.0); Hemoglobin 9.1 GM/DL (12.0-16.0); Immature Granulocytes % 1.2 %; Immature Granulocytes Absolute 0.09 #; Lymphocytes # 1.4 10*3/uL (1.4-4.0); Lymphocytes % 18.8 % (21.3-54.2); Mean Corpuscular HGB Conc 32.3 GM/DL (32-36); Mean Corpuscular Volume 92.2 FL (87-102); Mean Platelet Volume 10.8 FL (9.6-12.0); Monocytes % 7.1 % (1.7-12.7); Neutrophils % 69.1 % (38.7-73.9); Platelet Count 208 T/CUMM (130-400); Red Blood Count 3.06 MC/CUMM (3.8-5.5); Red Cell Distribution Width 15.8 % (9.3-17.3); White Blood Count 7.5 T/CUMM (4-12)
[2018-11-18] MEDS: LEVOTHYROXINE 25 MCG TABLET PO SCH (06:44)
[2018-11-18] MEDS: POTASSIUM CHLORIDE RIDER 10 MEQ in PREMIX 1 EACH IV PRN (08:27)
[2018-11-18] MEDS: FLUoxetine 20 MG CAPSULE PO SCH (08:30)
[2018-11-18] MEDS: MULTIVITAMIN (BEROCCA) TABLET PO SCH (08:30)
[2018-11-18] MEDS: GABAPENTIN 600 MG TABLET PO SCH ×3 (08:30→22:01)
[2018-11-18] MEDS: BACLOFEN 10 MG TABLET PO SCH ×2 (08:30→22:02)
[2018-11-18] MEDS: POTASSIUM CHLORIDE 20 MEQ/15 ML UDCUP PO SCH (08:31)
[2018-11-18] MEDS: APIXABAN 2.5 MG TABLET PO SCH ×2 (08:31→22:02)
[2018-11-18] MEDS: FAMOTIDINE 20 MG/2 ML VIAL IV SCH ×2 (08:36→22:01)
[2018-11-18 11:58] LABS: ABG Base Excess 6.5 MMOL/L (-2.5-2.5); ABG HCO3 30.4 MMOL/L (20-26); ABG Oxygen Saturation 98.9 % (95-100); ABG PCO2 50.1 MM HG (35-48); ABG PH 7.416 (7.35-7.45); ABG TCO2 29.2 MMOL/L (23-27); Allen Test Positive; Pt O2 Delivery Device Ventilator
[2018-11-18] MEDS: FLUCONAZOLE INJ 100 MG in IV BAG 1 EACH IV SCH (12:12)
[2018-11-18] MEDS: NOREPINEPHRINE 8 MG in SODIUM CHLORIDE 0.9% 242 ML IV SCH (19:01)
[2018-11-18] MEDS: DONEPEZIL 10 MG TABLET PO SCH (22:02)
[2018-11-19] MEDS: LEVOFLOXACIN INJ 750 MG in PREMIX 1 EACH IV SCH (00:04)
[2018-11-19] MEDS: INSULIN REGULAR 100 UNIT/ML SUBCUT SCH ×4 (00:40→18:19)
[2018-11-19] MEDS: LEVALBUTEROL 0.31 MG/3 ML NEB RESP TX SCH ×4 (00:53→19:12)
[2018-11-19] MEDS: SODIUM CHLORIDE 0.45% 1,000 ML IV SCH ×3 (01:11→14:37)
[2018-11-19] MEDS: PIPERACILLIN/TAZOBACTAM 3,375 MG in SODIUM CHLORIDE 0.9% 100 ML IV SCH ×3 (01:35→17:04)
[2018-11-19 02:59] LABS: ABG Base Excess 6.2 MMOL/L (-2.5-2.5); ABG HCO3 30.1 MMOL/L (20-26); ABG PCO2 51.7 MM HG (35-48); ABG PH 7.403 (7.35-7.45); ABG PO2 87.1 MM HG (80-95); ABG TCO2 29.1 MMOL/L (23-27); Allen Test Positive; Pt O2 Delivery Device Venturi Mask
[2018-11-19 06:28] LABS: Prealbumin 10.2 MG/DL (20-40)
[2018-11-19] MEDS: LEVOTHYROXINE 25 MCG TABLET PO SCH (06:29)
[2018-11-19] MEDS ORDERED: FUROSEMIDE 40 MG/4 ML VIAL IV ONE (07:38)
[2018-11-19] MEDS: GABAPENTIN 600 MG TABLET PO SCH ×3 (08:20→21:22)
[2018-11-19] MEDS: BACLOFEN 10 MG TABLET PO SCH ×2 (08:20→21:23)
[2018-11-19] MEDS: MULTIVITAMIN (BEROCCA) TABLET PO SCH (08:20)
[2018-11-19] MEDS: POTASSIUM CHLORIDE 20 MEQ/15 ML UDCUP PO SCH (08:21)
[2018-11-19] MEDS: FAMOTIDINE 20 MG/2 ML VIAL IV SCH ×2 (08:27→21:27)
[2018-11-19] MEDS: FLUoxetine 20 MG CAPSULE PO SCH (08:46)
[2018-11-19] MEDS: APIXABAN 2.5 MG TABLET PO SCH ×2 (08:46→21:23)
[2018-11-19] MEDS: FLUCONAZOLE INJ 100 MG in IV BAG 1 EACH IV SCH (12:30)
[2018-11-19] MEDS: NOREPINEPHRINE 8 MG in SODIUM CHLORIDE 0.9% 242 ML IV SCH ×2 (16:03→22:11)
[2018-11-19] MEDS: DONEPEZIL 10 MG TABLET PO SCH (21:23)
[2018-11-20] MEDS: LEVALBUTEROL 0.31 MG/3 ML NEB RESP TX SCH ×2 (01:29→07:05)
[2018-11-20] MEDS: PIPERACILLIN/TAZOBACTAM 3,375 MG in SODIUM CHLORIDE 0.9% 100 ML IV SCH ×2 (01:45→08:09)
[2018-11-20] MEDS: INSULIN REGULAR 100 UNIT/ML SUBCUT SCH (02:12)
[2018-11-20] MEDS: SODIUM CHLORIDE 0.45% 1,000 ML IV SCH (02:14)
[2018-11-20] MEDS: LEVOTHYROXINE 25 MCG TABLET PO SCH (06:08)
[2018-11-20] MEDS: GABAPENTIN 600 MG TABLET PO SCH (08:08)
[2018-11-20] MEDS: BACLOFEN 10 MG TABLET PO SCH (08:08)
[2018-11-20] MEDS: POTASSIUM CHLORIDE 20 MEQ/15 ML UDCUP PO SCH (08:08)
[2018-11-20] MEDS: MULTIVITAMIN (BEROCCA) TABLET PO SCH (08:08)
[2018-11-20] MEDS: FLUoxetine 20 MG CAPSULE PO SCH (08:08)
[2018-11-20] MEDS: APIXABAN 2.5 MG TABLET PO SCH (08:08)
[2018-11-20] MEDS ORDERED: FAMOTIDINE 20 MG TABLET PO SCH (09:00)
[2018-11-20] MEDS ORDERED: DEXTROSE 10% 250 ML BAG IV PRN (10:00)
[2018-11-20 10:34] VITALS: BP 86/50
[2018-11-20] MEDS ORDERED: AMITRIPTYLINE 50 MG TABLET PO SCH (21:00)
== END 2018-11-20 10:50 | DRG 870 ==
LOC: EDUNIT# → EDBD → N.ED 11:39 → N.EDINP 14:40 → SUATTDRO 14:40 → N.EDINP 15:56 → N.5E 17:36 → N.ICU 11-13 17:12
PROVIDERS: ADMIT Internal Medicine; ATTEND Internal Medicine